=== PATIENT | female | born 1945 | race Caucasian/White ===

== ENCOUNTER 2018-09-14 08:16 | Day surgery (SDC) | payer MEDICARE, MEDICAID ==
[~2018-09-14] VITALS: Ht 144.8 cm; Wt 54.1 kg
[2018-09-14 08:25] VITALS: BP 140/57
[2018-09-14] MEDS ORDERED: cholesterol med PO (08:30)
[2018-09-14] MEDS ORDERED: MIDAZolam 5mg/5ml vial ONE (08:31)
[2018-09-14] MEDS ORDERED: fentaNYL/PF 50MCG/1 ML 2ML syringe ONE (08:31)
[2018-09-14 09:11] VITALS: BP 120/73
[2018-09-14 09:21] VITALS: BP 114/76
[2018-09-14 09:31] VITALS: BP 129/45
[2018-09-14 09:41] VITALS: BP 114/72
== END 2018-09-14 10:05 | disposition home or self-care (01) ==
LOC: GI LAB 08:16
PROVIDERS: ATTEND Internal Medicine Gastroenterology
DX: Z12.11 Encounter for screening for malignant neoplasm of colon (principal); D12.2 Benign neoplasm of ascending colon; D12.5 Benign neoplasm of sigmoid colon; K64.8 Other hemorrhoids
CPT/HCPCS: 45380; 45385; 99153; G0500; J2250; J3010; J7030; 99152; A4620